=== PATIENT | female | born 1940 | race Caucasian/White ===

== ENCOUNTER → 2018-09-04 | Outpatient (CLI) | payer MEDICARE, BC ==
[2018-09-04] MEDS: LIDOCAINE 1% (MPF) 5 ML VIAL SC (14:30)
== END | disposition home or self-care (01) ==
LOC: RAD 12:57
DX: M86.30 Chronic multifocal osteomyelitis, unspecified site (principal)
CPT/HCPCS: 36569; 71045; 76937